=== PATIENT | male | born 1985 | race African-American/Black ===

== ENCOUNTER 2018-07-29 18:53 | Emergency (ER) | payer OTHER ==
[~2018-07-29] VITALS: Ht 175.3 cm; Wt 68.0 kg
[~2018-07-29 18:53] MED LIST: TRAMADOL 50 MG50 MG PO
[2018-07-29] MEDS ORDERED: PENICILLIN V P500 MG PO (19:21)
[2018-07-29] MEDS ORDERED: IBUPROFEN 600600 M1 PO (19:21)
[2018-07-29 19:28] VITALS: BP 130/74
== END 2018-07-29 19:32 | disposition home or self-care (01) ==
LOC: ER 18:53
DX: K08.89 Other specified disorders of teeth and supporting structures (principal); R46.0 Very low level of personal hygiene

== ENCOUNTER 2018-08-02 19:30 | Emergency (ER) | payer OTHER ==
[~2018-08-02] VITALS: Ht 175.3 cm; Wt 68.0 kg
[~2018-08-02 19:30] MED LIST changes: +IBUPROFEN 600600 M1 PO; +PENICILLIN V P500 MG PO
[2018-08-02 20:02] LABS: URINE BILIRUBIN NEGATIVE (Negative); URINE BLOOD NEGATIVE (Negative); URINE CLARITY CLEAR; URINE COLOR YELLOW; URINE GLUCOSE-RANDOM* NEGATIVE (Negative); URINE KETONES TRACE (Negative); URINE LEUKOCYTES-REFLEX NEGATIVE (Negative); URINE NITRITE-REFLEX NEGATIVE (Negative); URINE PROTEIN (DIPSTICK) TRACE (Negative)
[2018-08-02 20:02] LABS: BASOPHILS 0.5 % (0.0-2.0); EOSINOPHILS 1.1 % (0.0-3.0); HEMATOCRIT 41.8 % (42.0-52.0); LYMPHOCYTES 15.8 % (24.0-44.0); MCH 29.3 pg (26.0-34.0); MCHC 33.4 g/dL (28.0-37.0); MCV 87.8 fL (80.0-100.0); MONOCYTES 9.6 % (1.0-8.0); PLATELET COUNT 220 thou/uL (150-400); RBC 4.76 mil/uL (4.50-6.00); RDW 14.4 % (10.5-14.5); WBC 9.6 thou/uL (4.0-11.0)
[2018-08-02 20:11] LABS: CALCIUM 9.5 mg/dL (8.5-10.1); POTASSIUM 3.7 mmol/L (3.5-5.1)
[2018-08-02 20:17] LABS: ALBUMIN 4.1 g/dL (3.4-5.0); TOTAL BILIRUBIN 0.5 mg/dL (<0.1-1.0); TOTAL PROTEIN 7.8 g/dL (6.4-8.2)
[2018-08-02 21:12] VITALS: BP 119/69
== END 2018-08-02 21:16 | disposition home or self-care (01) ==
LOC: ER 19:30
PROVIDERS: Physician Assistant
DX: R10.12 Left upper quadrant pain (principal)

== ENCOUNTER 2020-02-14 10:46 | Emergency (ER) | payer OTHER ==
[~2020-02-14] VITALS: Ht 175.3 cm; Wt 68.0 kg
[2020-02-14 12:23] VITALS: BP 106/71
== END 2020-02-14 12:24 | disposition home or self-care (01) ==
LOC: ER 10:46
DX: S60.212A Contusion of left wrist, initial encounter (principal); V03.09XA Pedestrian with other conveyance injured in collision with car, pick-up truck or van in nontraffic accident, initial encounter; Y93.89 Activity, other specified; Y92.89 Other specified places as the place of occurrence of the external cause; Y99.8 Other external cause status